=== PATIENT | female | born 1975 | race Caucasian/White ===

== ENCOUNTER 2017-06-13 02:22 | Inpatient (IN) | payer OTHER ==
[~2017-06-13] VITALS: Ht 175.3 cm; Wt 95.9 kg
[2017-06-13 02:25] VITALS: BP 135/87
[2017-06-13] MEDS ORDERED: LACTATED RINGERS 1,000 ML IV SCH (05:05)
[2017-06-13] MEDS ORDERED: OXYTOCIN 30U/ 0.9% NaCL 500ML 500 ML IV ONE (05:05)
[2017-06-13] MEDS ORDERED: D5%-LACTATED RINGERS 1,000 ML IV SCH (05:05)
[2017-06-13] MEDS ORDERED: NEWBORN KIT ONE (05:15)
[2017-06-13] MEDS ORDERED: OXYTOCIN 30U/ 0.9% NaCL 500ML 500 ML ONE (05:15)
[2017-06-13] MEDS ORDERED: FENTANYL PF 100 MCG/2ML IV PRN (05:30)
[2017-06-13] MEDS ORDERED: ONDANSETRON 2MG/ML, 2ML IVPush PRN (05:30)
[2017-06-13] MEDS ORDERED: TERBUTALINE 1 MG/ML, 1ML IVPush PRN (05:30)
[2017-06-13] MEDS ORDERED: CALCIUM CARBONATE 500 MG TAB.CHEW PO PRN ×2 (05:30→21:30)
[2017-06-13] MEDS ORDERED: FENTANYL PF 100 MCG/2ML IVPush PRN (05:30)
[2017-06-13 05:33] LABS: HEMOGLOBIN 14.1 g/dL (11.7-16.4); WHITE BLOOD COUNT 19.9 x10^3/uL (3.4-10)
[2017-06-13] MEDS ORDERED: OXYTOCIN 30U/ 0.9% NaCL 500ML 500 ML IV SCH (08:14)
[2017-06-13] MEDS ORDERED: HYDROcodone/APAP 5/325 TABLET PO PRN ×4 (08:30→21:30)
[2017-06-13] MEDS ORDERED: ACETAMINOPHEN 325 MG TABLET PO PRN ×2 (08:30→21:30)
[2017-06-13] MEDS ORDERED: MISOPROSTOL 200 MCG TABLET PR PRN (08:30)
[2017-06-13] MEDS ORDERED: METHYLERGONOVINE 0.2 MG/ML IM PRN (08:30)
[2017-06-13] MEDS ORDERED: ONDANSETRON 2MG/ML, 2ML IV PRN ×2 (08:30→21:30)
[2017-06-13] MEDS ORDERED: IBUPROFEN 600 MG TABLET PO PRN ×2 (08:30→21:30)
[2017-06-13] MEDS ORDERED: DOCUSATE 100 MG CAPSULE PO PRN ×2 (08:30→21:30)
[2017-06-13] MEDS ORDERED: PRENATAL VIT/IRON/FA 1 EACH TABLET PO SCH (09:00)
[2017-06-13 10:50] VITALS: BP 121/81
[2017-06-13 15:30] VITALS: BP 129/87
[2017-06-13 15:50] LABS: HEMATOCRIT 41.6 % (34.6-47.8); WHITE BLOOD COUNT 25.6 x10^3/uL (3.4-10)
[2017-06-13 16:24] LABS: DIFF TOTAL CELLS COUNTED 100 CELL DIFF
[2017-06-13 16:26] LABS: VERIFY COUNTS? YES
[2017-06-13 20:45] VITALS: BP 131/86
[2017-06-14 00:30] VITALS: BP 118/79
[2017-06-14] MEDS ORDERED: IBUP-1222 PO (07:38)
[2017-06-14] MEDS ORDERED: DOCU-131 PO (07:38)
[2017-06-14 08:16] VITALS: BP 112/77
[2017-06-14] MEDS ORDERED: PRENATAL VIT/IRON/FA 1 EACH TABLET PO SCH (09:00)
== END 2017-06-14 15:20 | disposition home or self-care (01) | DRG 775 ==
LOC: LDOP 02:22 → LDIP 05:00 → 2NW 10:15
PROVIDERS: ADMIT Obstetrics & Gynecology; ATTEND Obstetrics & Gynecology
PROC: 10E0XZZ Delivery of Products of Conception, External Approach (ICD-10-PCS; principal; 2017-06-13)
PROC: 0KQM0ZZ Repair Perineum Muscle, Open Approach (ICD-10-PCS; 2017-06-13)
DX: O77.0 Labor and delivery complicated by meconium in amniotic fluid (principal); G43.909 Migraine, unspecified, not intractable, without status migrainosus; O70.1 Second degree perineal laceration during delivery; Z37.0 Single live birth; Z3A.41 41 weeks gestation of pregnancy
CPT/HCPCS: 36415; 85025; 86850; 86900; J2590